=== PATIENT | male | born 1960 | race Caucasian/White ===

== ENCOUNTER 2020-07-28 02:02 | Outpatient (CLI) | payer OTHER, SELFPAY ==
[2020-07-28 18:45] LABS: SARS-CoV-2 RNA PCR Negative
== END 2020-07-28 02:03 | disposition home or self-care (01) ==
LOC: ANHCOVIDDT 02:02
PROVIDERS: Visit Provider Internal Medicine Gastroenterology
DX: Z01.812 Encounter for preprocedural laboratory examination (principal); Z11.59 Encounter for screening for other viral diseases
CPT/HCPCS: 87635; C9803; U0003

== ENCOUNTER 2020-07-31 01:17 | Day surgery (SDC) | payer OTHER, SELFPAY ==
[2020-07-21 11:15] VITALS: BMI 34.4
[2020-07-31 06:19] VITALS: BP 134/77; PULSE 65; RESP 20; TEMP 36.4; O2SAT 99; BMI 34.4
[2020-07-31] MEDS: LACTATED RINGERS 1,000 ML 150 ML IV CONT (06:32)
--- NOTE | 2020-07-31 06:47 | WPDANESEPPF ---
Anes - Initial Pre Proc Eval Procedure: Operation Date: 07/31/20 07:30 Proposed Procedures p Esophagogastroduodenoscopy&Screen Colon - Missael Caldeorn MD Date/Time: 07/31/20 06:47 Surgeon: Missael Calderon MD Pre Op Diagnosis: neoplasm screening, domingo's esophagus Patient Data Age: 59 Gender: M Height: 5 ft 10 in Weight: 108.7 kg Last Vital Signs Temp 36.4 C L 07/31/20 06:19 Pulse 65 07/31/20 06:19 Resp 20 07/31/20 06:19 BP 134/77 07/31/20 06:19 Pulse Ox 99 07/31/20 06:19 Allergies Allergy/AdvReac Type Severity Reaction Status Date / Time No Known Allergies Allergy Unverified 07/31/20 06:18 Home Medications Medication Instructions Recorded Confirmed Type latanoprost 1 drp OPHTHALMIC (EYE) HS 07/21/20 07/21/20 History lisinopril-hydrochlorothiazide 1 tablet PO DAILY 07/21/20 07/21/20 History omeprazole 20 mg PO DAILY 07/21/20 07/21/20 History valacyclovir 500 mg PO DAILY 07/21/20 07/21/20 History Patient hx anesthesia problems: none Family hx anesthesia problems: none PMFSH Past Medical History Medical History (Updated 07/31/20 @ 06:47 by Andrea Hernández MD) Barretts esophagus HTN (hypertension) Obesity EVAN (obstructive sleep apnea) Family History Family History Mother Hypertension Father Cerebrovascular accident Sibling Family history of lung cancer Social History Social History Smoking status: Former smoker Smoking end date: 08/18/15 Alcohol intake: current Alcohol use details: ocationally Living arrangements: with family Gender identity (if verbalized by the patient): Male Spiritual care concerns: No Anes - Eval Final PreProcedure Day of Procedure 07/31/20 06:47 Patient weight: obese Heart: regular rate and rhythm Lungs: clear to auscultation Airway: Mallampati scale class III Neurological: alert and oriented Last oral intake: >/= 8 hours ASA classification: III Emergent: no Anesthetic plan: proceed Anesthesia type and monitoring: general GIVS and standard monitoring Informed Consent: The patient's anesthetic plan and its attendant risks and benefits were discussed with the patient/family/POA. Questions were solicited and answers provided to the satisfaction of the patient/family/POA.
[2020-07-31] MEDS: BENZOCAINE (*SP) 60 ML SPRAY CAN (HURRICAINE) 1 SPRAY MUCOUS MEM (07:33)
--- NOTE | 2020-07-31 07:40 | WPDGICN ---
Assessment and Plan Assessment and plan (1) Encounter for screening colonoscopy: Code(s): Z12.11 - Encounter for screening for malignant neoplasm of colon Status: Acute Assessment and Plan: Patient appears to be at average risk for colon polyps. Screening rectal colonoscopy recommended now and at intervals in the future. (2) Barretts esophagus: Code(s): K22.70 - Burkett's esophagus without dysplasia Status: Inactive Assessment and Plan: Patient has a history of Burkett's esophagus. No dysplasia has been identified. Plan is for anti-reflux measures. Continue omeprazole or similar proton pump inhibitor long-term. For EGD has been advised at 3 year intervals. GI Consult Note Consult date/time: 07/31/20 07:40 HPI: Ermias Meadows Jr. is a 59 year old male Seen in evaluation because of Burkett's esophagus. Patient has a history of Burkett's esophagus. He denies heartburn. He has had no dysphagia. His weight remains stable. He has been on long-term omeprazole. Family history is significant his mother had Burkett's esophagus. Patient presents for screening EGD. This been recommended every 3 years. Additionally patient presents for colonoscopy. His current weight appetite bowel movements normal. He denies abdominal pain. Family history is noncontributory for colon disease. He denies any blood in his stools. His bowel habits are regular. Review of Systems Review of Systems: All systems reviewed & are unremarkable except as noted in HPI and below PMFSH Past Medical History Medical History (Updated 07/31/20 @ 07:42 by Missael Calderon MD) Barretts esophagus HTN (hypertension) Obesity EVAN (obstructive sleep apnea) Family History Family History Mother Hypertension Father Cerebrovascular accident Sibling Family history of lung cancer Social History Social History Smoking status: Former smoker Smoking end date: 08/18/15 Alcohol intake: current Alcohol use details: ocationally Living arrangements: with family Gender identity (if verbalized by the patient): Male Spiritual care concerns: No Meds Home Medications and Allergies Home Medications Medication Instructions Recorded Confirmed Type latanoprost 1 drp OPHTHALMIC (EYE) HS 07/21/20 07/21/20 History lisinopril-hydrochlorothiazide 1 tablet PO DAILY 07/21/20 07/21/20 History omeprazole 20 mg PO DAILY 07/21/20 07/21/20 History valacyclovir 500 mg PO DAILY 07/21/20 07/21/20 History Allergies Allergy/AdvReac Type Severity Reaction Status Date / Time No Known Allergies Allergy Unverified 07/31/20 06:18 Vital Signs Vital Signs - 24 hr 07/31/20 06:19 Temperature 97.5 F L Pulse Rate 65 Respiratory Rate 20 Blood Pressure 134/77 Pulse Oximetry 99 Exam Narrative: Exam Narrative: Physical exam reveals Vital Signs to be stable. HEENT exam unremarkable. Lungs are clear to auscultation and percussion. Heart is without murmur or extra sounds. Abdominal exam bowel sounds are present soft nontender with no organomegaly. Digital external rectal exam normal.
[2020-07-31 07:56] VITALS: BP 115/75; PULSE 67; RESP 22; O2SAT 98
[2020-07-31 08:06] VITALS: BP 132/85; PULSE 59; RESP 20; O2SAT 100
[2020-07-31 08:16] VITALS: BP 125/78; PULSE 57; RESP 15; O2SAT 99
== END 2020-07-31 08:25 | disposition home or self-care (01) ==
PROVIDERS: Visit Provider Internal Medicine Gastroenterology
PROC: 0DJ08ZZ Inspection of Upper Intestinal Tract, Via Natural or Artificial Opening Endoscopic (ICD-10-PCS; CPT 43235; principal; 2020-07-31 07:30)
DX: Z12.11 Encounter for screening for malignant neoplasm of colon (principal); K22.70 Barrett's esophagus without dysplasia; K57.30 Diverticulosis of large intestine without perforation or abscess without bleeding; I10 Essential (primary) hypertension; E66.9 Obesity, unspecified; Z68.34 Body mass index [BMI] 34.0-34.9, adult; Z87.891 Personal history of nicotine dependence; K64.8 Other hemorrhoids
CPT/HCPCS: 45378; 43239; 87635; 88305; C9803; J2704; J7120; U0003

== ENCOUNTER 2023-08-08 02:51 | Day surgery (SDC) | payer BC, SELFPAY ==
[2023-07-23 09:13] VITALS: BMI 33.5
--- NOTE | 2023-08-06 08:45 | SUR.PREOP ---
Patient called regarding upcoming procedure. Message left on pt's voicemail regarding appointment times.
--- NOTE | 2023-08-07 09:32 | WPDANESEPPF ---
Anes - Initial Pre Proc Eval Procedure: Operation Date: 08/08/23 09:00 Proposed Procedures p Esophagogastroduodenoscopy - Missael Calderon MD Date/Time: 08/07/23 09:32 Surgeon: Missael Calderon MD Pre Op Diagnosis: Burkett's Esophagus without dysplasia Patient Data Age: 62 Gender: M Height: 1.78 m Weight: 106 kg Allergies Allergy/AdvReac Type Severity Reaction Status Date / Time No Known Allergies Allergy Verified 08/08/23 07:59 Home Medications Medication Instructions Recorded Confirmed Type latanoprost 0.005 % eye drops 1 drp ophthalmic (eye) HS 07/21/20 07/23/23 History lisinopril 20 1 tablet PO DAILY 07/21/20 07/23/23 History mg-hydrochlorothiazide 12.5 mg tablet valacyclovir 1 gram tablet 500 mg PO DAILY 07/21/20 07/23/23 History omeprazole 20 mg capsule,delayed See Rx Instructions .Route 12/18/22 07/23/23 Rx release .COMPLEX #90 caps Patient hx anesthesia problems: none Family hx anesthesia problems: none Results Review: All pre-operative results and documents have been reviewed as part of the pre-operative evaluation. [facility] Past Medical History Medical History (Updated 12/19/22 @ 11:04 by MARÍA Goldman) Barretts esophagus Gastroesophageal reflux disease HTN (hypertension) Obesity EVAN (obstructive sleep apnea) Family History Family History Mother Hypertension Father Cerebrovascular accident Sibling Family history of lung cancer Social History Social History Smoking packs per day: 1 Smoking cigarettes per day: 20.0 Years smoked: 22 Smoking pack-years: 22.00 Smoking status: Former smoker Tobacco type: cigarettes Smoking end date: 08/18/15 Alcohol intake: current Drinks per week: 6 Alcohol use details: ocationally Substance use: never Substance use type: does not use Living arrangements: with family Gender identity (if verbalized by the patient): Male Spiritual care concerns: No Anes - Eval Final PreProcedure Day of Procedure 08/07/23 09:32 Patient weight: obese Heart: regular rate and rhythm Lungs: clear to auscultation Airway: Mallampati scale class II Neurological: alert and oriented Last oral intake: >/= 8 hours ASA classification: III Emergent: no Anesthetic plan: proceed Anesthesia type and monitoring: general GIVS and standard monitoring Results Review: All pre-operative results and documents have been reviewed as part of the pre-operative evaluation. Informed Consent: The patient's anesthetic plan and its attendant risks and benefits were discussed with the patient/family/POA. Questions were solicited and answers provided to the satisfaction of the patient/family/POA.
[2023-08-08 08:00] VITALS: BP 157/89; PULSE 59; RESP 18; TEMP 36.1; O2SAT 97
[2023-08-08] MEDS: LACTATED RINGERS 1,000 ML 150 ML IV CONT (08:08)
--- NOTE | 2023-08-08 08:37 | PM.HPGS ---
History of Present Illness History of Present Illness Consent: Risks, benefits, and alternatives have been discussed and questions answered. Patient agrees to proceed with procedure. Chief complaint: Burkett's Esophagus without dysplasia Narrative: Ermias Meadows Jr. is a 62 year old male Presents for EGD. Patient has a history of Burkett's esophagus. Patient reports his current weight appetite bowel movements normal. Patient denies heartburn. He has had no difficulty swallowing. Currently maintained on omeprazole 20mg p.o. daily. Review of Systems Review of Systems: Review of systems noncontributory. [facility] Past Medical History Medical History (Updated 12/19/22 @ 11:04 by MARÍA Goldman) Barretts esophagus Gastroesophageal reflux disease HTN (hypertension) Obesity EVAN (obstructive sleep apnea) Family History Family History Mother Hypertension Father Cerebrovascular accident Sibling Family history of lung cancer Social History Social History Smoking packs per day: 1 Smoking cigarettes per day: 20.0 Years smoked: 22 Smoking pack-years: 22.00 Smoking status: Former smoker Tobacco type: cigarettes Smoking end date: 08/18/15 Alcohol intake: current Drinks per week: 6 Alcohol use details: ocationally Substance use: never Substance use type: does not use Living arrangements: with family Gender identity (if verbalized by the patient): Male Spiritual care concerns: No Meds Home Medications and Allergies Home Medications Medication Instructions Recorded Confirmed Type latanoprost 0.005 % eye drops 1 drp ophthalmic (eye) HS 07/21/20 07/23/23 History lisinopril 20 1 tablet PO DAILY 07/21/20 07/23/23 History mg-hydrochlorothiazide 12.5 mg tablet valacyclovir 1 gram tablet 500 mg PO DAILY 07/21/20 07/23/23 History omeprazole 20 mg capsule,delayed See Rx Instructions .Route 12/18/22 07/23/23 Rx release .COMPLEX #90 caps Allergies Allergy/AdvReac Type Severity Reaction Status Date / Time No Known Allergies Allergy Verified 08/08/23 07:59 Vital Signs Vital Signs - 24 hr 08/08/23 08:00 Temperature 96.9 F L Pulse Rate 59 L Respiratory Rate 18 Blood Pressure 157/89 H Pulse Oximetry 97 Oxygen Delivery Room Air Exam Narrative: Physical exam reveals patient to be alert. Vital signs stable. HEENT exam is unremarkable. Patient is anicteric. Lungs are clear to auscultation and percussion. Heart is without murmur or extra sounds. Abdomen bowel sounds are present soft nontender with no organomegaly. Digital external rectal exam normal. Assessment and Plan Assessment and plan (1) Burkett's esophagus: Code(s): K22.70 - Burkett's esophagus without dysplasia Status: Acute Assessment and Plan: Patient with a history of Burkett's esophagus. Clinically stable. Plan to continue omeprazole and anti-reflux measures. Follow-up EGD anticipated at 3 year intervals. Further recommendations may be given after endoscopy.
[2023-08-08 08:58] VITALS: BP 145/100; PULSE 67; RESP 17; O2SAT 98
[2023-08-08 09:08] VITALS: BP 152/84; PULSE 60; RESP 21; O2SAT 98
[2023-08-08 09:18] VITALS: BP 155/92; PULSE 62; RESP 19; O2SAT 100
== END 2023-08-08 09:29 | disposition home or self-care (01) ==
PROVIDERS: Visit Provider Internal Medicine Gastroenterology
PROC: 0DJ08ZZ Inspection of Upper Intestinal Tract, Via Natural or Artificial Opening Endoscopic (ICD-10-PCS; CPT 43235; principal; 2023-08-08 09:00)
DX: K22.70 Barrett's esophagus without dysplasia (principal); K21.00 Gastro-esophageal reflux disease with esophagitis, without bleeding; I10 Essential (primary) hypertension; G47.33 Obstructive sleep apnea (adult) (pediatric); Z87.891 Personal history of nicotine dependence; E66.9 Obesity, unspecified; Z68.34 Body mass index [BMI] 34.0-34.9, adult
CPT/HCPCS: 43239; 88305; J2704; J7120